=== PATIENT | male | born 1970 | race Caucasian/White ===

== ENCOUNTER 2017-12-04 16:55 | Emergency (ER) | payer BC, OTHER ==
[2017-12-04 17:21] VITALS: BP 119/64
--- NOTE | 2017-12-04 17:34 | UC ---
Hip/Pelvis Pain - HPI Summary HPI Summary: patient fell almost 24 hours ago after falling 10 feet to the ground. now complaining of pain in the right hip and lower back. pain worse with weight bearing - History Of Current Complaint Chief Complaint: UCTrauma Stated Complaint: SP FALL FROM LADDER/BACK/RT HIP Time Seen by Provider: 12/04/17 17:20 Onset/Duration: Sudden Onset Timing: Constant Severity Initially: Severe Severity Currently: Severe Pain Intensity: 10 Location: Discrete At: - right hip and lumbar spine Character Of Pain: Sharp Aggravating Factor(s): Weight Bearing Alleviating Factor(s): Nothing Associated Signs And Symptoms: Positive: Negative - Allergies/Home Medications Allergies/Adverse Reactions: Allergies Allergy/AdvReac Type Severity Reaction Status Date / Time codeine Allergy Rash Verified 12/04/17 17:12 PMH/Surg Hx/FS Hx/Imm Hx Previously Healthy: Yes - Surgical History Surgical History: Yes Surgery Procedure, Year, and Place: s1 laminectomies 07/03/2003 and 08/31/2003 - Social History Alcohol Use: Rare Substance Use Type: None Smoking Status (MU): Current Every Day Smoker Type: Cigarettes Amount Used/How Often: 1 ppd Length of Time of Smoking/Using Tobacco: 25 yrs Have You Smoked in the Last Year: Yes Review of Systems Constitutional: Negative Skin: Negative Eyes: Negative ENT: Negative Respiratory: Negative Cardiovascular: Negative Gastrointestinal: Negative Genitourinary: Negative Motor: Negative Neurovascular: Negative Musculoskeletal: Negative Neurological: Negative Is Patient Immunocompromised?: No All Other Systems Reviewed And Are Negative: Yes Physical Exam Triage Information Reviewed: Yes Appearance: Pain Distress Vital Signs: Initial Vital Signs Temp 37.2 C 12/04/17 17:13 Pulse 94 12/04/17 17:13 Resp 14 12/04/17 17:13 BP 119/64 12/04/17 17:13 Pulse Ox 98 12/04/17 17:13 Vital Signs Reviewed: Yes Eye Exam: Normal Eyes: Positive: Conjunctiva Clear ENT Exam: Normal Neck exam: Normal Respiratory Exam: Normal Cardiovascular Exam: Normal Abdominal Exam: Normal Musculoskeletal Exam: Other - tenderness in the right hip and groin, pain on internal rotation at the hip, pain in the lumbar spine on palpation Neurological: Positive: Alert Skin Exam: Normal Hip Injury Course/Dx - Differential Dx/Diagnosis Provider Diagnoses: anterior compression fracture L2 Discharge - Sign-Out/Discharge Documenting (check all that apply): Patient Departure All imaging exams completed and their final reports reviewed: Yes - Discharge Plan Condition: Good Disposition: HOME Prescriptions: Oxycodone HCl/Acetaminophen [Percocet 5-325 mg Tablet] 1 each PO Q6HR PRN 4 Days #25 tablet MDD 4 PRN Reason: Pain - Severe Patient Education Materials: Vertebroplasty (DC) Referrals: Rosalie Nance MD [Primary Care Provider] - Reynaldo Schafer MD [Medical Doctor] - - Billing Disposition and Condition Condition: GOOD Disposition: Home
--- NOTE | 2017-12-04 17:54 | RAD ---
INDICATION: Low back pain after a fall COMPARISON: None. TECHNIQUE: 3 views of the lumbar spine were obtained. FINDINGS: Thoracic spine: On the AP view of the thoracic spine there is a small degree of S shaped curvature dextroconvex at the upper thoracic spine and levoconvex at the lower thoracic spine. Degenerative changes of the thoracic spine includes loss of intervertebral disc height. At the mid-level lower thoracic spine. There is no definite fracture or dislocation involving the thoracic spine. Lumbar spine: Involving the superior anterior corner of the L2 vertebral body is a small degree of cortical discontinuity along the anterior margin of the vertebral body. Posteriorly the vertebral body appears to be intact. More inferiorly at the anterior superior corner of the L4 vertebral body there is a 1.2 cm well-corticated bony focus separate from the vertebral body that appears more chronic. Degenerative changes include loss of intervertebral disc height at L5/S1 and L3/L4. There is no severe spondylolisthesis. IMPRESSION: 1. Questionable nondisplaced fracture involving the anterior superior corner of the L2 vertebral body. 2. A well-circumscribed bony focus at the superior anterior corner of the L4 vertebral body appears chronic. 3. Multilevel degenerative changes of the thoracic and lumbar spine as described above.
--- NOTE | 2017-12-04 17:56 | RAD ---
INDICATION: Right hip pain after a fall COMPARISON: None TECHNIQUE: 3 views of the right hip were obtained. FINDINGS: The visualized bones of the right hip are well-corticated and properly aligned. Mild degenerative changes of the right hip include sclerotic change of the acetabular roof and marginal osteophyte formationThere is no radiographic evidence of acute fracture or dislocation. IMPRESSION: Mild degenerative changes of the right hip without radiographically apparent fracture or dislocation. If the patient's symptoms persist follow-up imaging is recommended.
--- NOTE | 2017-12-04 19:05 | RAD ---
EXAM: CT Lumbar Spine Without Intravenous Contrast CLINICAL HISTORY: 47 years old, male; Injury or trauma; Fall; Initial encounter; Fracture, traumatic injury; Not specified; Second lumbar vertebra and fourth lumbar vertebra; Injury date: 12/03/17; Injury details: Pt fell backwards from 10 ft yesterday; Prior surgery; Surgery date: 6+ months; Surgery type: S1 lamenectomy; Additional info: Fracture l2, l4 TECHNIQUE: Axial computed tomography images of the lumbar spine without intravenous contrast. All CT scans at this facility use at least one of these dose optimization techniques: automated exposure control; mA and/or kV adjustment per patient size (includes targeted exams where dose is matched to clinical indication); or iterative reconstruction. Coronal and sagittal reformatted images were created and reviewed. COMPARISON: No relevant prior studies available. FINDINGS: Vertebrae: Anterior compression fracture of L2. No involvement of the posterior elements. Left-sided laminectomy changes noted at the L5-S1 level. Discs/spinal canal/neural foramina: Smooth osseous density projecting anterior to the L3-4 disc space represents either sequela of remote trauma or developmental anomaly. Appearance is not one of an acute fracture. Diffuse degenerative changes of the lumbosacral spine with disc space narrowing at multiple levels. Findings most pronounced at L3-4 and L5-S1. Soft tissues: Unremarkable. Vasculature: Atherosclerotic calcification. IMPRESSION: 1. Anterior compression fracture of L2 without involvement of the posterior elements. To contact [facility] with a general question: Operations Center - [phone] For direct physician to physician contact: Physician Hotline - [phone] [facility] ([facility] Facility ID #[id number])
== END 2017-12-04 19:34 | disposition home or self-care (01) ==
LOC: UCCORT 16:55
DX: S32.029A Unspecified fracture of second lumbar vertebra, initial encounter for closed fracture (principal); W11.XXXA Fall on and from ladder, initial encounter; Y93.89 Activity, other specified; Y92.9 Unspecified place or not applicable; Z88.5 Allergy status to narcotic agent
CPT/HCPCS: 72070; 72100; 72131; 99202; G0463

== ENCOUNTER 2018-06-13 12:11 | Emergency (ER) | payer BC ==
[2018-06-13 12:33] VITALS: BP 113/73
[2018-06-13] MEDS ORDERED: HYDROcodone/ACETAMIN 5-325 MG* 1 TAB PO ONE (12:56)
--- NOTE | 2018-06-13 13:02 | UC ---
Back Pain HPI - HPI Summary HPI Summary: 48-year-old male comes in with a chief complaint of back pain after fall. This morning he slipped and fell at home on his outside stairs landing on his right lower posterior ribs. He has pain with taking a deep breath or with palpation and twisting turning bending. States the pain is just to the right of the spine. He has had normal urination has not seen any blood in it. He took some Tylenol which did not help much with the pain. Does not feel short of breath at rest. Denies any abdominal pain or other injuries. - History of Current Complaint Chief Complaint: UCBackPain Stated Complaint: S/P FALL MID BACK/RIGHT RIBS Time Seen by Provider: 06/13/18 12:51 Pain Intensity: 9 - Allergies/Home Medications Allergies/Adverse Reactions: Allergies Allergy/AdvReac Type Severity Reaction Status Date / Time codeine Allergy Rash Verified 06/13/18 12:31 Home Medications: Home Medications Acetaminophen [Tylenol Extra Strength] 1,500 mg PO ONCE PRN 06/13/18 [History Confirmed 06/13/18] PMH/Surg Hx/FS Hx/Imm Hx Previously Healthy: Yes - Surgical History Surgical History: Yes Surgery Procedure, Year, and Place: s1 laminectomies 07/03/2003 and 08/31/2003 - Family History Known Family History: Positive: Non-Contributory - Social History Alcohol Use: Rare Substance Use Type: None Smoking Status (MU): Current Every Day Smoker Type: Cigarettes Amount Used/How Often: 1 ppd Length of Time of Smoking/Using Tobacco: 25 yrs Have You Smoked in the Last Year: Yes Review of Systems All Other Systems Reviewed And Are Negative: Yes Constitutional: Positive: Negative Skin: Positive: Other - eccymosis rt posterior lower chest Eyes: Positive: Negative ENT: Positive: Negative Respiratory: Positive: Negative Cardiovascular: Positive: Chest Pain - see hpi Gastrointestinal: Positive: Negative Genitourinary: Positive: Negative. Negative: Hematuria Motor: Positive: Negative Neurovascular: Positive: Negative Musculoskeletal: Positive: Other: - see hpi Neurological: Positive: Negative Psychological: Positive: Negative Is Patient Immunocompromised?: No Physical Exam Triage Information Reviewed: Yes Appearance: Well-Appearing, Well-Nourished, Pain Distress - Mild With movement and deep breathing, Signs of Trauma - Eccymosis rt posterior lower chest Vital Signs: Initial Vital Signs Temp 98.5 F 06/13/18 12:29 Pulse 65 06/13/18 12:29 Resp 16 06/13/18 12:29 BP 113/73 06/13/18 12:29 Pulse Ox 100 06/13/18 12:29 Vital Signs Reviewed: Yes Eye Exam: Normal Eyes: Positive: Conjunctiva Clear Neck exam: Normal Neck: Positive: Supple, Nontender Respiratory: Positive: Lungs clear, Normal breath sounds, No respiratory distress, Other: - Eccymosis rt posterior lower chest and tender to palpation same. Non tender midline spine. Cardiovascular: Positive: RRR Abdomen Description: Positive: Nontender, Soft, CVA Tenderness (R) Musculoskeletal: Positive: Strength Intact, ROM Intact Neurological Exam: Normal Neurological: Positive: Alert, Muscle Tone Normal Psychological Exam: Normal Psychological: Positive: Normal Response To Family, Age Appropriate Behavior Skin: Positive: Other - Eccymosis rt posterior lower chest Back Pain Course/Dx - Course Course Of Treatment: Patient Name: MARILYN MELTON Medical Record#: [id number] Ordering Physician: Mundo Zheng MD Acct.#: [id number] : 1970 Age: 48 Sex: M Location: [facility] Exam Date: 06/13/18 1256 ADM Status: REG ER Order Information: RIBS RT UNI W/PA CH MIN 3 VWS Accession Number: [id number] CPT: 10628 HISTORY: pain rt lower posterior ribs s/p fall this am COMPARISONS: None relevant available at the time of dictation. VIEWS: 7, Frontal view of the chest with frontal and oblique views of the right hemithorax. FINDINGS: There is a minimally displaced fracture of the right 11th rib posteriorly without associated pneumothorax. There is a scoliotic curvature of the spine. There is a calcified granuloma of the right lower lung. IMPRESSION: MINIMALLY DISPLACED FRACTURE OF THE RIGHT 11TH RIB POSTERIORLY WITHOUT PNEUMOTHORAX. <Electronically signed by Guy Villatoro MD in [place]> 06/13/18 1307 I discussed the x-rays with the patient and his . Plan is ibuprofen and [place] as needed to help with the pain. Light duty at work until cleared by medical provider. Patient was sent home with an incentive spirometer and instructions to use it. There is some blood in the urine patient's to get that rechecked with his primary care doctor. I let the patient know if anything got worse he is to get reevaluated again right away. - Differential Dx/Diagnosis Provider Diagnosis: Right rib fracture, Hematuria Discharge - Sign-Out/Discharge Documenting (check all that apply): Patient Departure All imaging exams completed and their final reports reviewed: Yes - Discharge Plan Condition: Stable Disposition: HOME Prescriptions: HYDROcodone/ACETAMIN 5-325 MG* [[place] 5-325 TAB*] 1 tab PO Q4H PRN #30 tab MDD 6 PRN Reason: Pain Patient Education Materials: Rib Fracture (ED), Hematuria (ED) Forms: *Work Release Referrals: Rosalie Nance MD [Primary Care Provider] - Additional Instructions: FOLLOW UP WITH YOUR DOCTOR. YOU HAD A TRACE OF BLOOD IN YOUR URINE. GET THIS RECHECKED WITH YOUR DOCTOR. GET REEVALUATED SOONER IF YOUR CONDITION WORSENS; PAIN, SHORTNESS OF BREATH, YOU CAN SEE BLOOD IN YOUR URINE OR SPUTUM, YOU FEEL ILL OR ANY QUESTIONS OR CONCERNS. USE THE INCENTIVE SPIROMETER EVERY 4 HOURS OR MORE FREQUENTLY TO HELP AVOID A RESPIRATORY INFECTION. - Billing Disposition and Condition Condition: STABLE Disposition: Home
== END 2018-06-13 13:54 | disposition home or self-care (01) ==
LOC: UCCORT 12:11
DX: S22.31XA Fracture of one rib, right side, initial encounter for closed fracture (principal); W10.9XXA Fall (on) (from) unspecified stairs and steps, initial encounter; Y92.008 Other place in unspecified non-institutional (private) residence as the place of occurrence of the external cause; Z88.5 Allergy status to narcotic agent; F17.210 Nicotine dependence, cigarettes, uncomplicated; R31.9 Hematuria, unspecified
CPT/HCPCS: 81003; 99212; G0463